=== PATIENT | female | born 1955 | race Caucasian/White ===

== ENCOUNTER 2019-09-15 09:58 | Emergency (ER) | payer OTHER | END 2019-09-15 17:07 | disposition home or self-care (01) | LOC: M.ERS 09:58 | DX: Z53.21 Procedure and treatment not carried out due to patient leaving prior to being seen by health care provider (principal) ==

== ENCOUNTER 2019-09-25 15:56 | Emergency (ER) | payer OTHER ==
[~2019-09-25] VITALS: Ht 160 cm; Wt 78.9 kg
[2019-09-25] MEDS ORDERED: METFORMIN HCL500 M3 PO (16:19)
[2019-09-25] MEDS ORDERED: COZAAR 50 MG TA50 MG PO (16:19)
[2019-09-25] MEDS ORDERED: NEURONTIN300 MG PO (16:19)
[2019-09-25] MEDS ORDERED: LOVASTATIN 20 M20 MG PO (16:19)
[2019-09-25] MEDS ORDERED: PROTONIX40 M3 PO (16:20)
[2019-09-25] MEDS ORDERED: CELEXA 20 MG TA20 MG PO (16:20)
[2019-09-25] MEDS ORDERED: FLEXERIL PO (17:41)
[2019-09-25] MEDS ORDERED: IBU600 MG PO (17:41)
[2019-09-25 17:56] VITALS: BP 161/61
== END 2019-09-25 17:57 | disposition home or self-care (01) ==
LOC: M.ERS 15:56
DX: S46.812A Strain of other muscles, fascia and tendons at shoulder and upper arm level, left arm, initial encounter (principal); S66.812A Strain of other specified muscles, fascia and tendons at wrist and hand level, left hand, initial encounter; S13.4XXA Sprain of ligaments of cervical spine, initial encounter; E11.9 Type 2 diabetes mellitus without complications; I10 Essential (primary) hypertension; E78.00 Pure hypercholesterolemia, unspecified; V89.2XXA Person injured in unspecified motor-vehicle accident, traffic, initial encounter; Y93.89 Activity, other specified; Y92.89 Other specified places as the place of occurrence of the external cause; Y99.8 Other external cause status